=== PATIENT | male | born 1955 | race Caucasian/White ===

== ENCOUNTER 2022-06-04 23:09 | Emergency (ER) | payer MEDICARE, SELFPAY ==
[2022-06-04 23:15] VITALS: BP 132/85; PULSE 78; RESP 18; TEMP 36.7; O2SAT 99; BMI 27.1
--- NOTE | 2022-06-04 23:26 | ED_ITS ---
HPI - General Adult General Chief complaint: Sore Throat Stated complaint: home test- covid +, sore throat, can't eat/drink Time Seen by Provider: 06/04/22 23:10 History of Present Illness HPI narrative: Pt presents with pharyngitis 5 days after developing COVID19 infection. He is quarantened at home. Pt is not on Paxlovid and actually feels good with the exception of the pharyngitis. Pt has no cough, sputum production, nausea, vomiting, fever, chills or weakness. He is concerned that he may have strep thoat and would simply like a strep test. He states the pain is severe and localized to the posterior pharynyx. Pt is eating and drinking fine. No airway issues. Related Data Home Medications Medication Instructions Recorded Confirmed No Known Home Medications 06/04/22 06/04/22 Allergies Allergy/AdvReac Type Severity Reaction Status Date / Time No Known Drug Allergies Allergy Verified 06/04/22 23:17 Review of Systems Status of ROS: Reports: 6 or more systems reviewed and unremarkable except as noted in History and below [facility] Social History Smoking Status: Unknown if ever smoked Exam Narrative: Exam Narrative: EXAM GENERAL: Patient appears comfortable and well. EYES: No scleral icterus. ENT: Tympanic membranes and oropharynx normal. Pharynx mildly injected. No deviation or exudate. THYROID: no thyroid nodules or thyromegaly. LYMPH: No supraclavicular or cervical lymphadenopathy. SKIN: Visible skin seen during exam normal or with benign process only. EXT: No dependent lower extremity pedal edema. HEART: Regular rate and rhythm with no murmurs, rubs, or gallops. LUNGS: Clear to auscultation bilaterally with no crackles or wheezes. ABD: Soft, non tender, non distended. PSYCH: Good eye contact, speech is not pressured. Const: Vital Signs, click to edit/add: Vital Signs - 24 hr 06/04/22 23:15 Temperature 98.0 F Pulse Rate [Right Pulse Oximeter] 78 Respiratory Rate 18 Blood Pressure [Ri ght Upper Arm] 132/85 Pulse Oximetry 99 Oxygen Delivery Me thod Room Air Course Course Hospital Course: Pt seen and examined. Reevaluation(s) Time: 23:30 Vital Signs Vital signs: Initial Vital Signs Temperature 98.0 F 06/04/22 23:15 Temperature Source Temporal Artery Scan 06/04/22 23:15 Pulse Rate 78 06/04/22 23:15 Respiratory Rate 18 06/04/22 23:15 Blood Pressure 132/85 06/04/22 23:15 Blood Pressure Mean 100 06/04/22 23:15 Blood Pressure Position Sitting 06/04/22 23:15 Pulse Oximetry 99 06/04/22 23:15 Oxygen Delivery Method 06/04/22 23:15 Vital Signs Temperature 98.0 F 06/04/22 23:15 Pulse Rate 78 06/04/22 23:15 Respiratory Rate 18 06/04/22 23:15 Blood Pressure 132/85 06/04/22 23:15 Pulse Oximetry 99 06/04/22 23:15 Oxygen Delivery Method 06/04/22 23:15 Temperature 98.0 F 06/04/22 23:15 Pulse Rate 78 06/04/22 23:15 Respiratory Rate 18 06/04/22 23:15 Blood Pressure 132/85 06/04/22 23:15 Pulse Oximetry 99 06/04/22 23:15 Oxygen Delivery Method 06/04/22 23:15 Medical Decision Making MDM Narrative Medical decision making narrative: Pt with current COVID infection which is improving with the exception of pharyngitis presents for assessment for strep throat. Swab collected. Pt would like to go home and be called about his results. Differential Diagnosis Differential Diagnosis: COVID, Strep Throat, Viral Pharyngitis, Pharynx Abscess Discharge Plan Discharge Clinical Impression: Pharyngitis Instructions: Pharyngitis (ED) Additional Instructions: Tylenol Motrin Rest Fluids We will call you based on your results. Activity Level: No Restrictions Discharge Diet: Regular Prescriptions: No Action No Known Home Medications
[2022-06-04 23:55] LABS: Strep A DNA Probe* NOT DETECTED (Not Detectd)
[2022-06-05 00:09] VITALS: BP 125/78; PULSE 74; RESP 18; TEMP 36.8; O2SAT 99
[2022-06-05 00:10] VITALS: BP 125/78; PULSE 74; RESP 18; TEMP 36.8
== END 2022-06-05 00:11 | disposition home or self-care (01) ==
LOC: ED 06-05 00:09
PROVIDERS: Emergency Provider Internal Medicine
DX: J02.9 Acute pharyngitis, unspecified (principal)
CPT/HCPCS: 87651; 99282; 99283

== ENCOUNTER 2023-03-15 00:56 | Emergency (ER) | payer MEDICARE, SELFPAY ==
--- NOTE | 2023-03-15 01:01 | ED_ITS ---
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 Related Data Home Medications Medication Instructions Recorded Confirmed cholecalciferol (vitamin D3) 50 50 mcg PO QDAY 01/29/23 03/13/23 mcg (2,000 unit) capsule lorazepam 0.5 mg tablet 0.5 mg PO Q6H PRN 01/29/23 03/13/23 multivitamin 1 tab PO QAM 01/29/23 03/13/23 ondansetron HCl 8 mg tablet 8 mg PO 3XD PRN 01/29/23 03/13/23 prochlorperazine maleate 10 mg 10 mg PO Q8H PRN 01/29/23 03/13/23 tablet Allergies Allergy/AdvReac Type Severity Reaction Status Date / Time No Known Drug Allergies Allergy Verified 03/13/23 13:42 Review of Systems Status of ROS: Reports: 10 or more systems reviewed and unremarkable except as noted in History and below PFSH PFSH Medical History (Updated 02/25/23 @ 22:52 by Donita Robison APRN) Depressive disorder ?F32.A - Depression, unspecified (ICD-10) BPH loc w/o ur obs/LUTS ?N40.0 - Benign prostatic hyperplasia without lower urinary tract symptoms (ICD-10) ANTONIETA (generalized anxiety disorder) ?F41.1 - Generalized anxiety disorder (ICD-10) Surgical History (Updated 02/19/23 @ 12:44 by Donita Robison APRN) History of tonsillectomy and adenoidectomy ?Z90.89 - Acquired absence of other organs (ICD-10) H/O total hip arthroplasty ?Z96.649 - Presence of unspecified artificial hip joint (ICD-10) S/P appy ?Z90.49 - Acquired absence of other specified parts of digestive tract (ICD- 10) Family History (Updated 02/19/23 @ 12:47 by Donita Robison APRN) Mother Skin cancer Lymphoma Father Prostate cancer Diabetes Arthritis Alcohol abuse Sister Lymphoma Social History (Updated 02/19/23 @ 12:51 by Donita Robison, ARMANDO) Physical activity type: walking and yoga Physical activity type details: Healthy spiritual lifestyle, yoga and gratitude walks, nature walks Smoking Status: Never smoker Do you use any of these nicotine containing products: None How often do you have a drink containing alcohol: monthly or less AUDIT-C Alcohol total score: 1 Non-prescribed substance use: denies use Are you now , , , , never or living with a partner: Social isolation score (0-1 are the most socially isolated patients): 0 Do you think of yourself as: straight/heterosexual Are you currently sexually active: No Exam Narrative: Exam Narrative: General: Well-developed and well-nourished, no acute distress Head: Atraumatic and normocephalic Eyes: Pupils are equal reactive, extraocular motions intact, conjunctiva clear ENT: External nose and ears are normal, posterior pharynx without erythema or exudate Neck: No midline cervical tenderness, full spontaneous range of motion the neck, trachea midline, no adenopathy Heart: Regular rate and rhythm no murmurs or thrills Lungs: Clear to auscultation bilaterally without wheezes or crackles Abdomen: Soft, nontender, nondistended with active bowel sounds Musculoskeletal: No tenderness, deformity, or edema Neurologic: Awake, alert, and oriented x3, no gross focal neurologic deficits, cranial nerves intact as tested Psych: Mood and affect are appropriate Skin: No rashes Medical Decision Making Medical Records Medical records reviewed: Yes I reviewed the patient's medical records Lab Data Lab results reviewed: Yes I reviewed the patient's lab results Discharge Plan Discharge Prescriptions: No Action prochlorperazine maleate 10 mg tablet 10 mg PO Q8H PRN lorazepam 0.5 mg tablet 0.5 mg PO Q6H PRN ondansetron HCl 8 mg tablet 8 mg PO 3XD PRN multivitamin Tablet 1 tab PO QAM cholecalciferol (vitamin D3) 50 mcg (2,000 unit) capsule 50 mcg PO QDAY Follow Up/Referrals: Chelsea Zhang [Primary Care Provider] -
--- NOTE | 2023-03-15 01:08 | ED.NURSE ---
Pt refusing services at this time and left without being seen. Form signed with registration.
== END 2023-03-15 01:33 | disposition left against medical advice (07) ==
PROVIDERS: Emergency Provider Family Medicine; PCP Internal Medicine
DX: Z53.21 Procedure and treatment not carried out due to patient leaving prior to being seen by health care provider (principal)

== ENCOUNTER 2023-04-16 14:20 | Outpatient (RCR) | payer MEDICARE, SELFPAY ==
[2023-01-28 11:53] LABS: Creatinine* 0.8 mg/dL (0.5-1.5); Estimated Glomerular Filt Rate 98 ml/min
--- NOTE | 2023-01-30 09:04 | URNOTE ---
Received request for prior auth for Carboplatin ([id number]), Paclitaxel ([id number]), and Aloxi ([id number]). Pt has medicare primary. Prior auth is not required as services are based on medical necessity and follow medicare guidelines.
[2023-02-11 11:28] LABS: Basophils Absolute Auto 0.05 K/uL (0.00-0.30); Basophils Percent Auto 0.8 % (0.0-3.0); Eosinophils Absolute Auto 0.09 K/uL (0.00-0.50); Eosinophils Percent Auto 1.4 % (0.0-7.0); Lymphocytes Absolute Auto 1.55 K/uL (0.90-2.90); Lymphocytes Percent Auto 24.5 % (20-44); Mean Corpuscular HGB Conc 33 gm/dL (32-36); Mean Corpuscular Hemoglobin 33 pg (26-34); Mean Corpuscular Volume 101 fL (80-100); Monocytes Percent Auto 13.1 % (0.0-11.0); Neutrophils Absolute Auto 3.81 K/uL (1.7-7.0); Neutrophils Percent Auto 60.2 % (42.0-72.0); Platelet Count* 217 K/uL (140-440); RDW Coefficient of Variation % 14.8 % (11.5-15.5); Red Blood Count 4.56 m/uL (4.30-5.90); White Blood Count* 6.33 K/uL (4.50-11.00)
[2023-02-11 11:32] LABS: Slide Review Reflex No
[2023-02-11 11:39] LABS: Albumin* 4.4 g/dL (3.3-5.0); Chloride* 101 mmol/L (96-114); Sodium* 141 mmol/L (135-149)
[2023-02-11 11:41] LABS: Bilirubin Total* 0.8 mg/dL (0.1-1.5); Creatinine* 0.9 mg/dL (0.5-1.5); Est. Creatinine Clearance* 75.03; Estimated Glomerular Filt Rate 94 ml/min
[2023-02-11 11:42] LABS: Alanine Aminotransferase* 34 U/L (4-50); Alkaline Phosphatase* 54 U/L (40-150); Anion Gap 8 mEq/L (7-15); Aspartate Amino Transferase* 43 U/L (12-35); Blood Urea Nitrogen* 23 mg/dL (7-30); Carbon Dioxide* 32 mmol/L (20-32); Total Protein* 7.4 g/dL (6.0-8.3)
[2023-02-11 11:49] LABS: Potassium* 4.7 mmol/L (3.6-5.1)
[2023-02-11 11:53] LABS: Glucose* 91 mg/dL (60-115)
[2023-02-11] MEDS: FAMOTIDINE 20 MG TABLET PO (12:30)
[2023-02-11] MEDS: diphenhydrAMINE 25 MG CAPSULE PO (12:30)
[2023-02-11 12:37] VITALS: BP 117/73; PULSE 58; RESP 16; TEMP 36.6; O2SAT 95
[2023-02-11] MEDS: dexAMETHasone 20 MG in 0.9 % SODIUM CHLORIDE 100 ml 100 ML 420 MG IVPB (12:56)
[2023-02-11] MEDS: PALONOSETRON 0.25 MG/5 ML inj IV (12:57)
--- NOTE | 2023-02-11 14:48 | ONC.NURNOTE ---
New chemo start at the [facility] patient has previously received Taxel and Carbo X 3 at [facility] reviewed possible side effects, after hours management, management of fever over 100.5, reviewed contents of new treatment binder reminded to call if concerns come up during the week to address as soon as possible patient discussed his whole person approach to wellness, including yoga, gratitude walks, nutrition, resilience training
[2023-02-14 19:42] LABS: Calcium* 9.3 mg/dL (8.4-10.6)
[2023-02-18 13:44] LABS: White Blood Count* 6.37 K/uL (4.50-11.00)
[2023-02-18 13:45] LABS: Basophils Percent Auto 0.3 % (0.0-3.0); Eosinophils Percent Auto 1.1 % (0.0-7.0); Hematocrit 43.5 % (37.0-53.0); Hemoglobin* 14.7 gm/dL (13.5-17.5); Immature Granulocytes Pct Auto 0.9 %; Lymphocytes Percent Auto 17.1 % (20-44); Mean Corpuscular HGB Conc 34 gm/dL (32-36); Mean Corpuscular Hemoglobin 33 pg (26-34); Mean Corpuscular Volume 99 fL (80-100); Monocytes Percent Auto 7.5 % (0.0-11.0); Neutrophils Percent Auto 73.1 % (42.0-72.0); Platelet Count* 216 K/uL (140-440); RDW Coefficient of Variation % 13.9 % (11.5-15.5)
[2023-02-18 13:46] LABS: Slide Review Reflex No
[2023-02-18 14:50] LABS: Albumin* 4.4 g/dL (3.3-5.0); Anion Gap 12 mEq/L (7-15); Bilirubin Total* 0.7 mg/dL (0.1-1.5); Blood Urea Nitrogen* 17 mg/dL (7-30); Calcium* 9.5 mg/dL (8.4-10.6); Carbon Dioxide* 23 mmol/L (20-32); Chloride* 104 mmol/L (96-114); Creatinine* 0.9 mg/dL (0.5-1.5); Est. Creatinine Clearance* 75.03; Estimated Glomerular Filt Rate 94 ml/min; Glucose* 156 mg/dL (60-115); Sodium* 139 mmol/L (135-149); Total Protein* 7.2 g/dL (6.0-8.3)
[2023-02-18 14:51] LABS: Alanine Aminotransferase* 34 U/L (4-50); Alkaline Phosphatase* 64 U/L (40-150); Aspartate Amino Transferase* 36 U/L (12-35)
[2023-02-19 12:43] VITALS: BP 115/67; PULSE 78; RESP 16; TEMP 36.3; O2SAT 95
[2023-02-19] MEDS: diphenhydrAMINE 25 MG CAPSULE PO (13:29)
[2023-02-19] MEDS: FAMOTIDINE 20 MG TABLET PO (13:29)
[2023-02-19] MEDS: dexAMETHasone 20 MG in 0.9 % SODIUM CHLORIDE 100 ml 100 ML 408 MG IVPB (13:53)
[2023-02-19] MEDS: PALONOSETRON 0.25 MG/5 ML inj IV (14:25)
[2023-02-26 09:09] VITALS: BP 125/83; PULSE 72; RESP 16; TEMP 36.8; O2SAT 96
[2023-02-26 09:18] LABS: Eosinophils Percent Auto 2.2 % (0.0-7.0); Immature Granulocytes Pct Auto 0.5 %; Lymphocytes Percent Auto 22.5 % (20-44); Mean Corpuscular HGB Conc 33 gm/dL (32-36); Mean Corpuscular Hemoglobin 33 pg (26-34); Mean Corpuscular Volume 98 fL (80-100); Monocytes Percent Auto 11.7 % (0.0-11.0); Neutrophils Percent Auto 62.1 % (42.0-72.0); Platelet Count* 228 K/uL (140-440); RDW Coefficient of Variation % 13.2 % (11.5-15.5); White Blood Count* 4.09 K/uL (4.50-11.00)
[2023-02-26 09:20] LABS: Slide Review Reflex No
[2023-02-26 09:29] LABS: Albumin* 4.4 g/dL (3.3-5.0); Chloride* 103 mmol/L (96-114); Sodium* 140 mmol/L (135-149)
[2023-02-26 09:30] LABS: Potassium* 4.1 mmol/L (3.6-5.1)
[2023-02-26 09:32] LABS: Alanine Aminotransferase* 34 U/L (4-50); Alkaline Phosphatase* 76 U/L (40-150); Anion Gap 11 mEq/L (7-15); Aspartate Amino Transferase* 36 U/L (12-35); Bilirubin Total* 1.1 mg/dL (0.1-1.5); Blood Urea Nitrogen* 29 mg/dL (7-30); Calcium* 9.7 mg/dL (8.4-10.6); Carbon Dioxide* 26 mmol/L (20-32); Est. Creatinine Clearance* 75.03; Estimated Glomerular Filt Rate 83 ml/min; Glucose* 111 mg/dL (60-115); Total Protein* 7.8 g/dL (6.0-8.3)
[2023-02-26 11:59] VITALS: BP 124/79; PULSE 76; RESP 16
[2023-02-26] MEDS: 0.9 % SODIUM CHLORIDE 1000 ml 1,000 ML IV (12:30)
[2023-02-26] MEDS: FAMOTIDINE 20 MG TABLET PO (13:05)
[2023-02-26] MEDS: dexAMETHasone 20 MG in 0.9 % SODIUM CHLORIDE 100 ml 100 ML 408 MG IVPB (13:05)
[2023-02-26] MEDS: diphenhydrAMINE 25 MG CAPSULE PO (13:05)
[2023-02-26] MEDS: PALONOSETRON 0.25 MG/5 ML inj IV (13:06)
[2023-02-26] MEDS: TUBING PRIMARY IV (13:53)
[2023-02-26] MEDS: MICRON FILTER SET IV (13:53)
[2023-02-26] MEDS: PACLITAXEL IV (13:53)
[2023-02-26] MEDS: [UNRECOGNIZED DRUG - OTHER] IV (13:53)
[2023-02-26] MEDS: IN LINE IV (13:53)
--- NOTE | 2023-02-26 16:17 | ONC.NURNOTE ---
Addendum entered by Marylin Lyles RN 03/01/23 09:31: Pt here this am to cancel appt this afternoon for IVF. Pt states he feels much better and doesn't need fluids today. Pt states he never did get a prescription for magic mouthwash. Jute Bag Sewer called Radiation and left message to see if magic mouthwash could be ordered for pt to use prn. Original Note: Pt here for taxol/carbo. Pt down 12 pounds since last week. Pt states mouth is painful with sores, nothing tastes good and food has a different texture to it. Discussed with Donita Soares APRN. 1 L NS given over hour prior to chemo and creative services writer called radiation to order magic mouthwash for pt. Pt to return Saturday for possible IVF prior to the weekend.
[2023-03-04 11:17] LABS: Basophils Absolute Auto 0.02 K/uL (0.00-0.30); Basophils Percent Auto 0.3 % (0.0-3.0); Eosinophils Absolute Auto 0.03 K/uL (0.00-0.50); Eosinophils Percent Auto 0.5 % (0.0-7.0); Hematocrit 43.1 % (37.0-53.0); Hemoglobin* 14.7 gm/dL (13.5-17.5); Immature Granulocytes Abs Auto 0.04 K/uL (0.00-0.30); Immature Granulocytes Pct Auto 0.6 %; Lymphocytes Percent Auto 9.4 % (20-44); Mean Corpuscular HGB Conc 34 gm/dL (32-36); Mean Corpuscular Hemoglobin 33 pg (26-34); Mean Corpuscular Volume 98 fL (80-100); Monocytes Percent Auto 8.2 % (0.0-11.0); Platelet Count* 199 K/uL (140-440); RDW Coefficient of Variation % 12.9 % (11.5-15.5)
[2023-03-04 11:19] LABS: Slide Review Reflex No
[2023-03-04 11:34] LABS: Albumin* 4.4 g/dL (3.3-5.0); Chloride* 98 mmol/L (96-114)
[2023-03-04 11:35] LABS: Potassium* 4.1 mmol/L (3.6-5.1); Sodium* 133 mmol/L (135-149)
[2023-03-04 11:37] LABS: Anion Gap 7 mEq/L (7-15); Aspartate Amino Transferase* 37 U/L (12-35); Bilirubin Total* 1.1 mg/dL (0.1-1.5); Carbon Dioxide* 28 mmol/L (20-32); Est. Creatinine Clearance* 75.03; Estimated Glomerular Filt Rate 83 ml/min; Total Protein* 7.4 g/dL (6.0-8.3)
[2023-03-04 11:38] LABS: Alanine Aminotransferase* 36 U/L (4-50); Alkaline Phosphatase* 82 U/L (40-150); Blood Urea Nitrogen* 18 mg/dL (7-30); Calcium* 9.5 mg/dL (8.4-10.6); Glucose* 101 mg/dL (60-115)
[2023-03-04 12:04] VITALS: BP 145/84; PULSE 80; RESP 16; TEMP 36.8; O2SAT 96
[2023-03-04] MEDS: 0.9 % SODIUM CHLORIDE 1000 ml 1,000 ML IV (12:05)
[2023-03-04 12:06] VITALS: BP 113/78; PULSE 92
[2023-03-04] MEDS: diphenhydrAMINE 25 MG CAPSULE PO (12:27)
[2023-03-04] MEDS: FAMOTIDINE 20 MG TABLET PO (12:27)
[2023-03-04] MEDS: dexAMETHasone 20 MG in 0.9 % SODIUM CHLORIDE 100 ml 100 ML 420 MG IVPB (12:45)
[2023-03-04] MEDS: PALONOSETRON 0.25 MG/5 ML inj IV (12:46)
[2023-03-04] MEDS: PACLITAXEL IV (13:33)
[2023-03-04] MEDS: MICRON FILTER SET IV (13:33)
[2023-03-04] MEDS: TUBING PRIMARY IV (13:33)
[2023-03-04] MEDS: [UNRECOGNIZED DRUG - OTHER] IV (13:33)
[2023-03-04] MEDS: IN LINE IV (13:33)
[2023-03-06 10:47] VITALS: BP 121/71; PULSE 73; RESP 18; TEMP 37.4; O2SAT 95
[2023-03-06 10:48] VITALS: BP 123/76; PULSE 81
[2023-03-06] MEDS: 0.9 % SODIUM CHLORIDE 1000 ml 1,000 ML IV (11:12)
[2023-03-08] MEDS: 0.9 % SODIUM CHLORIDE 1000 ml 1,000 ML IV (11:08)
[2023-03-11 11:34] LABS: Basophils Absolute Auto 0.02 K/uL (0.00-0.30); Basophils Percent Auto 0.4 % (0.0-3.0); Eosinophils Absolute Auto 0.01 K/uL (0.00-0.50); Eosinophils Percent Auto 0.2 % (0.0-7.0); Hematocrit 42.9 % (37.0-53.0); Hemoglobin* 14.8 gm/dL (13.5-17.5); Immature Granulocytes Abs Auto 0.02 K/uL (0.00-0.30); Immature Granulocytes Pct Auto 0.4 %; Lymphocytes Percent Auto 5.8 % (20-44); Mean Corpuscular HGB Conc 35 gm/dL (32-36); Mean Corpuscular Hemoglobin 33 pg (26-34); Mean Corpuscular Volume 97 fL (80-100); Monocytes Percent Auto 10.5 % (0.0-11.0); Neutrophils Percent Auto 82.7 % (42.0-72.0); Platelet Count* 183 K/uL (140-440); RDW Coefficient of Variation % 12.5 % (11.5-15.5); Red Blood Count 4.44 m/uL (4.30-5.90); White Blood Count* 5.55 K/uL (4.50-11.00)
[2023-03-11 11:52] LABS: Slide Review Reflex No
[2023-03-11 12:03] LABS: Albumin* 4.5 g/dL (3.3-5.0); Chloride* 96 mmol/L (96-114)
[2023-03-11 12:04] LABS: Potassium* 4.1 mmol/L (3.6-5.1); Sodium* 136 mmol/L (135-149)
[2023-03-11 12:06] LABS: Anion Gap 12 mEq/L (7-15); Bilirubin Total* 0.9 mg/dL (0.1-1.5); Carbon Dioxide* 28 mmol/L (20-32); Est. Creatinine Clearance* 75.03; Estimated Glomerular Filt Rate 83 ml/min; Total Protein* 7.7 g/dL (6.0-8.3)
[2023-03-11 12:07] LABS: Alanine Aminotransferase* 28 U/L (4-50); Alkaline Phosphatase* 74 U/L (40-150); Blood Urea Nitrogen* 19 mg/dL (7-30); Calcium* 9.7 mg/dL (8.4-10.6); Glucose* 140 mg/dL (60-115)
[2023-03-11 12:19] LABS: Aspartate Amino Transferase* 40 U/L (12-35)
[2023-03-11 12:22] VITALS: BP 123/69; PULSE 87; RESP 16; TEMP 37; O2SAT 94
[2023-03-11] MEDS: diphenhydrAMINE 25 MG CAPSULE PO (14:19)
[2023-03-11] MEDS: FAMOTIDINE 20 MG TABLET PO (14:20)
[2023-03-11] MEDS: dexAMETHasone 20 MG in 0.9 % SODIUM CHLORIDE 100 ml 100 ML 408 MG IVPB (14:20)
[2023-03-11] MEDS: PALONOSETRON 0.25 MG/5 ML inj IV (14:21)
[2023-03-11] MEDS: [UNRECOGNIZED DRUG - OTHER] IV (15:02)
[2023-03-11] MEDS: MICRON FILTER SET IV (15:02)
[2023-03-11] MEDS: TUBING PRIMARY IV (15:02)
[2023-03-11] MEDS: IN LINE IV (15:02)
[2023-03-11] MEDS: PACLITAXEL IV (15:02)
--- NOTE | 2023-03-12 11:46 | PC.NURSE ---
Called pt today to inform him of MD appt with Dr. Hay tomorrow, 03/12/2023 at 1330 followed by fluid infusion at 1400. Pt was exasperated and states he is just not interested in more appointments. RN explained the rationale for the visit and that it is MD's responsibility as chemotherapy ordering provider to follow closely when patients are losing weight during treatment. Pt is adamant that he will not lose more weight as he has figured some things out with regards to nutritional intake. Vick will see radiation RN and MD today, late afternoon. [facility] RN will call in the morning to finalize appointment plans for tomorrow afternoon. RN encouraged to discuss with radiation team today as they may encourage him to keep his appointments tomorrow. Support and encouragement provided.
--- NOTE | 2023-03-12 16:03 | ONC.NURNOTE ---
Late entry: 03/11/23 Pt here for chemo. Wt down 8 pounds since last week. Pt not eating, drinking minimally. Mucinex and baking soda do not help the taste and texture of food. Message left for radiation oncology that pt has been requiring 3x/week IV hydration and wt down significantly. Pt has appt with Radiation oncology on 03/12/23 with nurse and provider to discuss plan of care.
[2023-03-15] MEDS: 0.9 % SODIUM CHLORIDE 1000 ml 1,000 ML IV (10:09)
[2023-03-15 10:10] VITALS: BP 101/64; PULSE 66; RESP 15; TEMP 36.1; O2SAT 97
[2023-03-18 11:25] LABS: Basophils Percent Auto 0.5 % (0.0-3.0); Eosinophils Percent Auto 0.5 % (0.0-7.0); Hematocrit 41.3 % (37.0-53.0); Hemoglobin* 14.1 gm/dL (13.5-17.5); Immature Granulocytes Pct Auto 0.3 %; Lymphocytes Percent Auto 5.3 % (20-44); Mean Corpuscular HGB Conc 34 gm/dL (32-36); Mean Corpuscular Hemoglobin 33 pg (26-34); Mean Corpuscular Volume 97 fL (80-100); Monocytes Percent Auto 12.3 % (0.0-11.0); Neutrophils Percent Auto 81.1 % (42.0-72.0); Platelet Count* 187 K/uL (140-440); RDW Coefficient of Variation % 12.9 % (11.5-15.5); Red Blood Count 4.24 m/uL (4.30-5.90); White Blood Count* 3.97 K/uL (4.50-11.00)
[2023-03-18 11:27] LABS: Slide Review Reflex No
[2023-03-18 11:33] LABS: Chloride* 98 mmol/L (96-114)
[2023-03-18 11:34] LABS: Sodium* 137 mmol/L (135-149)
[2023-03-18 11:36] LABS: Anion Gap 10 mEq/L (7-15); Aspartate Amino Transferase* 30 U/L (12-35); Bilirubin Total* 0.7 mg/dL (0.1-1.5); Carbon Dioxide* 29 mmol/L (20-32); Creatinine* 0.9 mg/dL (0.5-1.5); Est. Creatinine Clearance* 75.03; Estimated Glomerular Filt Rate 94 ml/min; Total Protein* 7.2 g/dL (6.0-8.3)
[2023-03-18 11:37] LABS: Alanine Aminotransferase* 23 U/L (4-50); Alkaline Phosphatase* 66 U/L (40-150); Blood Urea Nitrogen* 12 mg/dL (7-30); Calcium* 9.4 mg/dL (8.4-10.6); Glucose* 121 mg/dL (60-115)
[2023-03-18 12:04] VITALS: BP 106/72; PULSE 92; RESP 16; TEMP 36.4; O2SAT 95
[2023-03-18] MEDS: FAMOTIDINE 20 MG TABLET PO (12:44)
[2023-03-18] MEDS: diphenhydrAMINE 25 MG CAPSULE PO (12:45)
[2023-03-18] MEDS: dexAMETHasone 20 MG in 0.9 % SODIUM CHLORIDE 100 ml 100 ML 420 MG IVPB (12:55)
[2023-03-18] MEDS: PALONOSETRON 0.25 MG/5 ML inj IV (12:55)
[2023-03-18] MEDS: [UNRECOGNIZED DRUG - OTHER] IV (13:39)
[2023-03-18] MEDS: IN LINE IV (13:39)
[2023-03-18] MEDS: PACLITAXEL IV (13:39)
[2023-03-18] MEDS: TUBING PRIMARY IV (13:39)
[2023-03-18] MEDS: MICRON FILTER SET IV (13:39)
--- NOTE | 2023-03-19 11:03 | PC.NURSE ---
Called pt today to check in after chemo yesterday as he was scheduled for fluids this morning and didn't arrive yet. Vick states that he is feeling ok today, just tired and burning of his neck. RN encouraged use of ibuprofen as discussed yesterday. Vick states he took Advil overnight and slept great. Vick doesn't feel the need to get fluids today so RN will cancel his appt. Reviewed scheduled fluid appt for Saturday of this week and encouraged pt to come in if he isn't able to get enough oral inake. Vick verbalized understanding.
[2023-03-25 10:15] VITALS: BP 105/65; PULSE 101; RESP 18; TEMP 36.8; O2SAT 96
[2023-03-25] MEDS: 0.9 % SODIUM CHLORIDE 1000 ml 1,000 ML IV (10:30)
[2023-03-25 10:48] LABS: Basophils Percent Auto 0.4 % (0.0-3.0); Eosinophils Percent Auto 0.8 % (0.0-7.0); Hematocrit 36.2 % (37.0-53.0); Hemoglobin* 12.2 gm/dL (13.5-17.5); Lymphocytes Percent Auto 6.2 % (20-44); Mean Corpuscular HGB Conc 34 gm/dL (32-36); Mean Corpuscular Hemoglobin 33 pg (26-34); Mean Corpuscular Volume 98 fL (80-100); Monocytes Percent Auto 16.5 % (0.0-11.0); Neutrophils Percent Auto 76.1 % (42.0-72.0); Platelet Count* 189 K/uL (140-440); RDW Coefficient of Variation % 13.3 % (11.5-15.5); Red Blood Count 3.71 m/uL (4.30-5.90); White Blood Count* 2.43 K/uL (4.50-11.00)
[2023-03-25 10:50] LABS: Slide Review Reflex No
[2023-03-25] MEDS: MORPHINE 2 MG/ML inj IVP (10:59)
[2023-03-25] MEDS: PROCHLORPERAZINE 5 MG/ML VIAL IVP (10:59)
[2023-03-25] MEDS: dexAMETHasone 4 MG/ML VIAL IV (11:00)
[2023-03-25 11:05] LABS: Albumin* 3.3 g/dL (3.3-5.0); Chloride* 103 mmol/L (96-114); Potassium* 3.6 mmol/L (3.6-5.1); Sodium* 135 mmol/L (135-149)
[2023-03-25 11:07] LABS: Creatinine* 0.7 mg/dL (0.5-1.5); Est. Creatinine Clearance* 75.03; Estimated Glomerular Filt Rate 102 ml/min
[2023-03-25 11:08] LABS: Alanine Aminotransferase* 19 U/L (4-50); Alkaline Phosphatase* 48 U/L (40-150); Anion Gap 8 mEq/L (7-15); Aspartate Amino Transferase* 25 U/L (12-35); Bilirubin Total* 0.5 mg/dL (0.1-1.5); Blood Urea Nitrogen* 19 mg/dL (7-30); Carbon Dioxide* 24 mmol/L (20-32); Glucose* 145 mg/dL (60-115); Total Protein* 6.2 g/dL (6.0-8.3)
[2023-03-25 11:09] LABS: Calcium* 8.8 mg/dL (8.4-10.6)
--- NOTE | 2023-03-25 12:09 | ONC.NURNOTE ---
Pt here today following radiation oncology appt with Dr. Jasso; see Donita Draper APRN's note regarding the updated treatment plan. Pt has been receiving home infusions of Immuni-Tea from [facility], which includes Vitamin C, Zinc, Taurine, Magnesium. He says it also includes electrolytes and B Vitamins, which are possible add-on's from their menu. Pt tolerated Morphine Sulf 2mg IVP x 1 with marginal improvement of pain; no sedation or drowsiness. Pt also tolerated Compazine 5mg IVP and Dexamethasone 4mg IVP. Pt verbalizes agreement to following Dr. Jasso's plan of daily IVF x 2 weeks; appts made for this week. Pt scheduled to f/u with Belkys Childs PA-C Mon 04/01 while receiving IVF, with lab recheck, to have final f/u with Med Onc.
[2023-03-26 13:50] VITALS: BP 100/65; PULSE 101; RESP 18; TEMP 37.4; O2SAT 94
[2023-03-26] MEDS: 0.9 % SODIUM CHLORIDE 1000 ml 1,000 ML IV (14:00)
[2023-03-26] MEDS: SODIUM CHLORIDE 0.9 % (FLUSH) 10 ML SYRINGE IVF (15:55)
[2023-03-27 13:44] VITALS: BP 107/69; PULSE 88; RESP 16; TEMP 36.4; O2SAT 94
[2023-03-27] MEDS: 0.9 % SODIUM CHLORIDE 1000 ml 1,000 ML IV (13:56)
[2023-03-28 14:10] VITALS: BP 141/84; PULSE 81; RESP 16; TEMP 36.3; O2SAT 97
[2023-03-28] MEDS: 0.9 % SODIUM CHLORIDE 1000 ml 1,000 ML IV (14:26)
[2023-03-28] MEDS: SODIUM CHLORIDE 0.9 % (FLUSH) 10 ML SYRINGE IVF (14:26)
[2023-03-29 13:52] VITALS: BP 102/67; PULSE 86; RESP 16; TEMP 36.3; O2SAT 96
--- NOTE | 2023-04-01 09:00 | ONC.NURNOTE ---
Patient left message that he is not coming in today so machine sign writer called him back to see if he would atleast come in for labs and he stated he has been waiting for this Saturday for 2 months and its like a turd in his Easter basket to come in. Patient adamant about not coming in but did state that he thanked us for the great service. Did let patient know that we are available for labs and fluids if needed to just call in and we would be happy to help patient.
--- NOTE | 2023-04-02 16:07 | ONC.NURNOTE ---
Pt cancelled follow up appt with Belkys Childs PA-C on 04/01/23. Pt stopped in on 04/02/23, pt does not want to make follow up appt at this time.
[2023-04-12 14:40] VITALS: BP 123/71; PULSE 85; RESP 16; TEMP 36; O2SAT 96
[2023-04-12 14:49] LABS: Basophils Absolute Auto 0.02 K/uL (0.00-0.30); Basophils Percent Auto 0.2 % (0.0-3.0); Eosinophils Absolute Auto 0.08 K/uL (0.00-0.50); Eosinophils Percent Auto 0.8 % (0.0-7.0); Hematocrit 38.4 % (37.0-53.0); Hemoglobin* 12.7 gm/dL (13.5-17.5); Lymphocytes Percent Auto 3.8 % (20-44); Mean Corpuscular HGB Conc 33 gm/dL (32-36); Mean Corpuscular Hemoglobin 33 pg (26-34); Mean Corpuscular Volume 101 fL (80-100); Monocytes Percent Auto 10.2 % (0.0-11.0); Platelet Count* 479 K/uL (140-440); RDW Coefficient of Variation % 14.3 % (11.5-15.5); White Blood Count* 9.78 K/uL (4.50-11.00)
[2023-04-12 14:52] LABS: Slide Review Reflex No
[2023-04-12 15:01] LABS: Chloride* 99 mmol/L (96-114)
[2023-04-12 15:02] LABS: Potassium* 4.1 mmol/L (3.6-5.1); Sodium* 137 mmol/L (135-149)
[2023-04-12 15:04] LABS: Anion Gap 10 mEq/L (7-15); Bilirubin Total* 0.5 mg/dL (0.1-1.5); Carbon Dioxide* 28 mmol/L (20-32); Est. Creatinine Clearance* 75.03; Estimated Glomerular Filt Rate 83 ml/min
[2023-04-12 15:05] LABS: Alanine Aminotransferase* 16 U/L (4-50); Alkaline Phosphatase* 64 U/L (40-150); Aspartate Amino Transferase* 26 U/L (12-35); Blood Urea Nitrogen* 28 mg/dL (7-30); Glucose* 122 mg/dL (60-115); Total Protein* 7.3 g/dL (6.0-8.3)
== END 2023-07-27 23:59 | disposition home or self-care (01) ==
LOC: CCIC 14:20
PROVIDERS: Clinical Nurse Specialist; PCP Internal Medicine; Referring Provider Internal Medicine; Visit Provider Internal Medicine Hematology & Oncology
DX: C77.0 Secondary and unspecified malignant neoplasm of lymph nodes of head, face and neck (principal); R63.4 Abnormal weight loss; R53.83 Other fatigue; G62.0 Drug-induced polyneuropathy; R11.2 Nausea with vomiting, unspecified; T45.1X5A Adverse effect of antineoplastic and immunosuppressive drugs, initial encounter
CPT/HCPCS: 36415; 36592; 80053; 82565; 85025; 96360; 96361; 96365; 96376; 96413; 96417; 99202; 99205; 99211; 99212; 99213; 99214; 99215; A9270; J0780; J1100; J2270; J2469; J7030; J7050; J9045; J9267

== ENCOUNTER 2023-10-18 10:15 | Outpatient (RCR) | payer MEDICARE, SELFPAY | END 2024-02-12 11:45 | disposition home or self-care (01) | PROVIDERS: PCP Internal Medicine; Visit Provider Nurse Practitioner | DX: C01 Malignant neoplasm of base of tongue (principal); R29.898 Other symptoms and signs involving the musculoskeletal system; Z74.09 Other reduced mobility; Z51.89 Encounter for other specified aftercare | CPT/HCPCS: 97110; 97140; 97161 ==

== ENCOUNTER 2024-01-01 15:52 | Outpatient (CLI) | payer MEDICARE, SELFPAY | END 2024-01-01 15:53 | disposition home or self-care (01) | PROVIDERS: PCP Internal Medicine; Visit Provider Radiology Radiation Oncology | DX: C01 Malignant neoplasm of base of tongue (principal); C77.0 Secondary and unspecified malignant neoplasm of lymph nodes of head, face and neck; E03.8 Other specified hypothyroidism | CPT/HCPCS: 36415; 84443 ==

== ENCOUNTER 2024-03-10 10:57 | Outpatient (CLI) | payer MEDICARE, SELFPAY | END 2024-03-10 10:58 | disposition home or self-care (01) | PROVIDERS: PCP Internal Medicine; Visit Provider Radiology Radiation Oncology | DX: E03.9 Hypothyroidism, unspecified (principal) | CPT/HCPCS: 36415; 84443 ==

== ENCOUNTER 2024-04-29 13:27 | Outpatient (CLI) | payer MEDICARE, SELFPAY | END 2024-04-29 13:28 | disposition home or self-care (01) | PROVIDERS: Nurse Practitioner; PCP Internal Medicine; Visit Provider Radiology Radiation Oncology | DX: E03.9 Hypothyroidism, unspecified (principal) | CPT/HCPCS: 36415; 84443 ==

== ENCOUNTER 2024-06-08 20:09 | Emergency (ER) | payer MEDICARE, SELFPAY ==
[2024-06-08 20:42] VITALS: BP 124/82; PULSE 41; RESP 16; TEMP 36.8; O2SAT 96; BMI 24.4
--- NOTE | 2024-06-08 20:50 | ED.GENADULT ---
HPI - General Adult General Date Seen: 06/08/24 Chief complaint: Animal Bite Stated complaint: bit by possum Time Seen by Provider: 06/08/24 20:50 History of Present Illness HPI narrative: Very pleasant 69-year-old gentleman who has a history of throat cancer status post treatment last year. He is now 14 months since treatment and is otherwise healthy. He is not currently on chemotherapy or radiation. He has no other long-term medical conditions. He is not diabetic or immunosuppressed. He believes he is up-to-date on his tetanus. Medical record confirms his last tetanus was about 4 years ago. He was getting some cat food of the CT food bag DVTs cats tonight and when he reached into the CT food bag, he inadvertently encountered and a possum the head climbed into the bag. The possum bit him on the right hand. He jerked back. He suffered small bite delgado onto the thenar eminence of his thumb. The bite delgado are superficial and he has no numbness in his thumb and normal range of motion. He would not have come to the ER for the bite, were not for the risk for potential rabies and other infections. He was able to capture the a possum and it is alive and he has it contained in a 55 gal drum right now. Related Data Home Medications ?Medication ?Instructions ?Recorded ?Confirmed cholecalciferol (vitamin D3) 50 50 mcg PO QDAY 01/29/23 06/08/24 mcg (2,000 unit) capsule multivitamin 1 tab PO QAM 01/29/23 06/08/24 Allergies Allergy/AdvReac Type Severity Reaction Status Date / Time No Known Drug Allergies Allergy Verified 06/08/24 20:46 PFSH PFS Medical History Depressive disorder ?F32.A - Depression, unspecified (ICD-10) BPH loc w/o ur obs/LUTS ?N40.0 - Benign prostatic hyperplasia without lower urinary tract symptoms (ICD-10) ANTONIETA (generalized anxiety disorder) ?F41.1 - Generalized anxiety disorder (ICD-10) Surgical History History of tonsillectomy and adenoidectomy ?Z90.89 - Acquired absence of other organs (ICD-10) H/O total hip arthroplasty ?Z96.649 - Presence of unspecified artificial hip joint (ICD-10) S/P appy ?Z90.49 - Acquired absence of other specified parts of digestive tract (ICD-10) Family History (Updated 02/19/23 @ 12:47 by Donita Robison APRN) Mother Skin cancer Lymphoma Father Prostate cancer Diabetes Arthritis Alcohol abuse Sister Lymphoma Social History (Updated 02/19/23 @ 12:51 by Donita Robison APRN) Physical activity type: walking and yoga Physical activity type details: Healthy spiritual lifestyle, yoga and gratitude walks, nature walks Smoking Status: Never smoker Do you use any of these nicotine containing products: None How often do you have a drink containing alcohol: monthly or less AUDIT-C Alcohol total score: 1 Non-prescribed substance use: denies use Are you now , , , , never or living with a partner: Social isolation score (0-1 are the most socially isolated patients): 0 Do you think of yourself as: straight/heterosexual Are you currently sexually active: No service: No Exam Narrative: Exam Narrative: Constitutional: Appears well-developed and well-nourished. Polite. Non-toxic appearing. HENT: Head: Atraumatic. No signs of injury. Nose: No nasal discharge. Mouth/Throat: Mucous membranes are moist. Pharynx is normal. Tonsils symmetric. Uvula midline. Airway patent. Eyes: Conjunctivae normal and EOM are normal. Pupils are equal, round, and reactive to light. Right eye exhibits no discharge. Left eye exhibits no discharge. No icterus. Neck: Normal range of motion. Neck supple. No adenopathy. No stridor. Cardiovascular: No active bleeding. Normal distal cap refill. Pulmonary/Chest: Effort normal. No stridor. No respiratory distress. Musculoskeletal: Normal except for his right hand, thumb. He has superficial bite delgado on the thenar eminence and on the volar surface of the MCP joint. These do not appear to penetrate through the dermis or into the joint space. Normal range of motion in the wrist, MCP, PIP joint of the thumb. Intact radial and ulnar digital nerve function. Normal radial, median, ulnar nerve function. Normal range of motion. No edema. No tenderness. No deformity. Neurological: Alert. Normal strength. No cranial nerve deficit or sensory deficit. Coordination normal. GCS eye subscore is 4. GCS verbal subscore is 5. GCS motor subscore is 6. Skin: Skin is warm. No rash noted. Const: Vital Signs, click to edit/add: Vital Signs - 24 hr 06/08/24 20:42 Temperature 98.2 F Pulse Rate [Pulse Oximeter] 41 L Respiratory Rate 16 Blood Pressure [Ri ght Upper Arm] 124/82 Pulse Oximetry 96 Oxygen Delivery Me thod Room Air Course Vital Signs Vital signs: Initial Vital Signs Temperature 98.2 F 06/08/24 20:42 Temperature Source Temporal Artery Scan 06/08/24 20:42 Pulse Rate 41 L 06/08/24 20:42 Respiratory Rate 16 06/08/24 20:42 Blood Pressure 124/82 06/08/24 20:42 Blood Pressure Mean 96 06/08/24 20:42 Pulse Oximetry 96 06/08/24 20:42 Oxygen Delivery Method Room Air 06/08/24 20:42 Vital Signs Temperature 98.2 F 06/08/24 20:42 Pulse Rate 41 L 06/08/24 20:42 Respiratory Rate 16 06/08/24 20:42 Blood Pressure 124/82 06/08/24 20:42 Pulse Oximetry 96 06/08/24 20:42 Oxygen Delivery Method Room Air 06/08/24 20:42 Temperature 98.2 F 06/08/24 20:42 Pulse Rate 41 L 06/08/24 20:42 Respiratory Rate 16 06/08/24 20:42 Blood Pressure 124/82 06/08/24 20:42 Pulse Oximetry 96 06/08/24 20:42 Oxygen Delivery Method Room Air 06/08/24 20:42 Medical Decision Making MDM Narrative Medical decision making narrative: Very pleasant 69-year-old gentleman with a history of throat cancer now over 14 months out from any therapy. He has no other diabetes or immunosuppression. He presents to the ER [facility] for an opossum bite on his right thumb. It sounds like this bite was accidental and occurred by surprise. The possum was in a bag of cat food that the patient had stored outside. He reached into the bag to get some food fetus cats when the possum bit him. From a wound standpoint, the wounds are superficial and do not require primary closure with sutures. There is no evidence for any neurovascular or tendon injury. I do not think he needs x-rays of the thumb. He is up-to-date on tetanus. We discussed potential bacterial infection from this possum bite. The patient did wash the wound and try to clean it prior to coming in. We did copiously clean the wound here in the ER as well. In my review up-to-date and [facility], there is no data about infection rate with possum bites. Also discussed with [facility] and they have no data. Would strongly consider starting the patient on preventative antibiotics. Discussed this with the patient. However he strongly prefers to avoid antibiotics and would rather watch the wound for signs of infection. We reviewed the signs infection and he will return to the ER right away if he develops any redness, swelling, worsening pain, fever, pus draining from the wound, or any problems. Also consider rabies prophylaxis. Discussed with [facility]. They would recommend that since the animal is in custody that the patient bring the possum to the [facility] veterinary lab tomorrow for rabies testing. If the animal test positive for rabies, a rabies post exposure prophylaxis regimen could be initiated at that point. MD advises against empiric rabies prophylaxis in this case. Patient is agreeable to this plan. For his part, he suspects the animals probably not rabid since that only bit him once when he inadvertently put his hand in the bag of cat food. He will take that animal for testing tomorrow. Discharge Plan Discharge Clinical Impression: Animal bite of hand Patient Disposition: Home, Self-Care Condition: Stable Instructions: Animal Bite (ED) Additional Instructions: As we discussed, we do not have any data about the infection risk from opossum bites. Please monitor the bite area closely. Watch for any signs of infection- such as redness, swelling, pus draining from the wound, or worsening pain, trouble moving your thumb, or fever. If you have any concerns, please contact your doctor or return to the ER immediately to be rechecked. You are up-to-date on your tetanus and do not need a tetanus booster today. Please bring the animal to the [facility] veterinary laboratory in [place] tomorrow to have the a possum tested for rabies. I have printed out instructions from the [facility] website about how to submit an animal for rabies testing and where to drop the animal off. Good luck. If you have any problems, you can call the ER with questions. [phone]. Prescriptions: No Action multivitamin Tablet 1 tab PO QAM cholecalciferol (vitamin D3) 50 mcg (2,000 unit) capsule 50 mcg PO QDAY Follow Up/Referrals: Chelsea Zhang [Primary Care Provider] - Stand Alone Forms: the grafter Info Instructions
== END 2024-06-08 21:48 | disposition home or self-care (01) ==
LOC: ED 21:42
PROVIDERS: Emergency Provider Emergency Medicine; PCP Internal Medicine
DX: S61.451A Open bite of right hand, initial encounter (principal); W55.01XA Bitten by cat, initial encounter
CPT/HCPCS: 99282; 99283

== ENCOUNTER 2024-06-09 15:38 | Emergency (ER) | payer MEDICARE, SELFPAY ==
[2024-06-09 15:48] VITALS: BP 139/83; PULSE 64; RESP 18; TEMP 37.1; O2SAT 95; BMI 24.4
== END 2024-06-09 17:18 | disposition left against medical advice (07) ==
PROVIDERS: Emergency Provider Emergency Medicine Emergency Medical Services; PCP Internal Medicine
DX: Z53.21 Procedure and treatment not carried out due to patient leaving prior to being seen by health care provider (principal)

== ENCOUNTER 2024-07-13 13:38 | Outpatient (CLI) | payer MEDICARE, SELFPAY | END 2024-07-13 13:39 | disposition home or self-care (01) | PROVIDERS: PCP Internal Medicine; Visit Provider Nurse Practitioner | DX: E03.8 Other specified hypothyroidism (principal) | CPT/HCPCS: 36415; 84443 ==

== ENCOUNTER 2024-09-01 14:58 | Outpatient (CLI) | payer MEDICARE, SELFPAY ==
[2024-09-02 05:04] LABS: Free T4 Free Thyroxine* 0.88 ng/dL (0.70-1.85)
== END 2024-09-01 14:59 | disposition home or self-care (01) ==
LOC: LAB 14:59
PROVIDERS: PCP Internal Medicine; Visit Provider Radiology Radiation Oncology
DX: E03.9 Hypothyroidism, unspecified (principal)
CPT/HCPCS: 36415; 84439; 84443

== ENCOUNTER 2024-10-21 15:15 | Outpatient (CLI) | payer MEDICARE, SELFPAY ==
[2024-10-22 00:14] LABS: Free T4 Free Thyroxine* 1.11 ng/dL (0.70-1.85)
== END 2024-10-21 15:16 | disposition home or self-care (01) ==
LOC: LAB 15:17
PROVIDERS: PCP Internal Medicine; Visit Provider Radiology Radiation Oncology
DX: C01 Malignant neoplasm of base of tongue (principal); C77.0 Secondary and unspecified malignant neoplasm of lymph nodes of head, face and neck
CPT/HCPCS: 36415; 84439; 84443

== ENCOUNTER 2025-01-21 13:33 | Outpatient (CLI) | payer MEDICARE, SELFPAY | END 2025-01-21 13:34 | disposition home or self-care (01) | PROVIDERS: PCP Internal Medicine; Visit Provider Nurse Practitioner | DX: C01 Malignant neoplasm of base of tongue (principal) | CPT/HCPCS: 36415; 84443 ==